=== PATIENT | female | born 1960 | race Caucasian/White ===

== ENCOUNTER 2023-08-14 16:46 | Inpatient (IN) | payer SELFPAY ==
[2023-08-14] VITALS (28 sets, daily range): BP systolic 139–216; BP diastolic 51–94; PULSE 78–94; RESP 15–28; TEMP 36.6; O2SAT 92–98; BMI 34.3; BMI 37.4
[2023-08-14 17:06] LABS: Glucose Point of Care 230 mg/dL (70-110)
--- NOTE | 2023-08-14 17:09 | ECG_ITS ---
[facility] Test Date: 2023-08-14 Pat Name: Chas Jennings Department: Room: Gender: Female Advertising Sales Consultant: : 1960 Requested By: Tyson Muñoz Order Number: [id number] Gely MD: Sterling Centeno M.D. Measurements Intervals [place] Rate: 71 P: 52 DC: 184 QRS: 60 QRSD: 104 T: 55 QT: 407 QTc: 444 Interpretive Statements SINUS RHYTHM POSSIBLE ANTERIOR MYOCARDIAL INFARCTION , OF INDETERMINATE AGE [30 ms Q WAVE IN V3/V4, OR R < 0.2 mV IN V4] No previous ECG available for comparison Electronically Signed On 08-14-2023 17:37:49 CDT by Sterling Centeno M.D. [email or web address] Technologiesrussell medical centerHydrostorpromedica flower hospital.[employer]/store/NU/[id number] f
--- NOTE | 2023-08-14 17:16 | CTR_ITS ---
PROCEDURE INFORMATION: Exam: CT Head Without Contrast Exam date and time: 08/14/2023 5:25 PM Age: 63 years old Clinical indication: Stroke-like symptoms; Speech disturbance; Additional info: Symptoms of acute stroke started yesterday TECHNIQUE: Imaging protocol: Computed tomography of the head without contrast. Radiation optimization: All CT scans at this facility use at least one of these dose optimization techniques: automated exposure control; mA and/or kV adjustment per patient size (includes targeted exams where dose is matched to clinical indication); or iterative reconstruction. Other technique: STROKE PROTOCOL was implemented. COMPARISON: No relevant prior studies available. RADIATION DOSE METRICS: Total DLP (mGy-cm): 1041.3 FINDINGS: Brain: There is mild white matter lucency most consistent with chronic microvascular disease. There is an old left basal ganglia lacunar infarct. There is an old left occipital cortical infarct. No acute infarct is identified. There is no hemorrhage or extra-axial collection. No mass. Cerebral ventricles: No ventriculomegaly. Paranasal sinuses: Visualized sinuses are unremarkable. No fluid levels. Mastoid air cells: Visualized mastoid air cells are well aerated. Bones: Unremarkable. No acute fracture. Soft tissues: Unremarkable. CT/CT head thrombolytic 30630 IMPRESSION: 1. 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 2. No acute intracranial lesion or injury ASSESSMENT: ASPECTS ([place] Stroke Program Early CT Score) is 10.
--- NOTE | 2023-08-14 17:16 | ED_ITS ---
Documented by User: Tyson Red DO 08/14/23 18:08 HPI - Headache 2 General: Chief Complaint: Headache Stated Complaint: slurred speech Time Seen by Provider: 08/14/23 17:15 Source: patient Mode of arrival: ambulatory History of Present Illness: 63-year-old female presents emergency ro om complaining of frontal headache and elevated blood pressure. She has had confusion and difficulty with speech slurring of speech difficult word finding for the last 2 days she gets emotional even with simple history questioning he has difficult time completing send which is. She notices some right-sided visual defects. All of this began about 2 days ago. She is not currently on any medications her blood pressure is markedly elevated. She denies chest pain or shortness of breath. No history of previous stroke no history of coronary artery disease. MD elicited complaint: headache Onset (ago): day(s) (2) Onset description: gradually Location: frontal Severity: severe Quality & Timing: throbbing Exacerbating factors: none Relieving factors: nothing Associated symptoms: Reports confusion and photophobia; Deny chest pain, cough, diaphoresis, eye pain, eye redness, fever(s), lightheadedness, loss of vision, malaise, nausea, neck stiffness, numbness, paresthesias, pre-syncope, rash, seizures, short of breath, sound sensitivity, syncope, vomiting or weakness Review of Systems 2 Const: Denies: fever(s), chills, malaise or diaphoresis Card: Denies: chest pain, lightheadedness, syncope or pre-syncope Resp: Denies: dyspnea GI: Denies: abdominal pain, nausea or vomiting : Denies: dysuria, urinary frequency or urinary urgency Musc: Denies: neck pain or back pain Skin/Breast: Denies: rash Neuro: Reports: confusion Physical Exam 2 Const: COMMON NORMALS: no acute distress GENERAL APPEARANCE: cooperative and comfortable ORIENTATION/CONSCIOUSNESS: Yes awake, Yes oriented to person, Yes oriented to place and Yes oriented to time HENMT: COMMON NORMALS: normocephalic, atraumatic and hearing grossly normal bilaterally HEAD & SCALP: normocephalic and atraumatic Eye: DIRECT OPHTHALMOSCOPY: Yes photophobia Resp: COMMON NORMALS: normal respiratory effort, No retractions, No use of accessory muscles and clear to auscultation bilaterally AUSCULTATION: clear to auscultation bilaterally Cardio: COMMON NORMALS: regular rate, regular rhythm and No murmurs present (Cardio) RATE: regular rate RHYTHM: regular rhythm GI: COMMON NORMALS: Soft to palpation and No hepatosplenomegaly present A USCULTATION: Yes normoactive bowel sounds PALPATION: Yes Soft to palpation, No Tenderness to palpation present (GI), No Guarding due to palpation present (GI) and Yes No hepatosplenomegaly present Extremity: COMMON NORMALS: normal to inspection, capillary refill normal, no clubbing, cyanosis or edema, no calf tenderness and no pedal edema Neuro: SENSORIUM/ORIENTATION: Yes oriented to person, Yes oriented to place and Yes oriented to time Skin: COMMON NORMALS: no rashes or lesions noted GENERAL SKIN EXAM: no rashes or lesions noted Course 2 Vital Signs: Vital signs: Vital Signs Temperature 97.8 F 08/14/23 16:55 Pulse Rate 86 08/14/23 20:30 Respiratory Rate 18 08/14/23 20:22 Blood Pressure 173/71 08/14/23 20:30 Pulse Oximetry 94 08/14/23 20:30 Oxygen Delivery Me thod Room Air 08/14/23 20:30 MDM - Headache Medical Decision Making Care signed out to Dr. Bansal at change of shift. See final notes for diagnosis and disposition. Lab Data 08/14/23 17:46 08/14/23 17:[address] 08/14/23 17:16 IMPRESSION: 1. 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 2. No acute intracranial lesion or injury ASSESSMENT: ASPECTS ([place] Stroke Program Early CT Score) is 10. Laboratory Results WBC 7.97 10^3/uL (3.29-11.43) 08/14/23 17:46 RBC 4.63 10^6/uL (3.85-5.65) 08/14/23 17:46 Hgb 14.70 g/dL (11.27-16.99) 08/14/23 17:46 Hct 44.3 % (36-47) 08/14/23 17:46 MCV 95.7 fl (85-98) 08/14/23 17:46 MCH 31.7 pg (27-33) 08/14/23 17:46 MCHC 33.2 g/dL (30-55) 08/14/23 17:46 RDW 11.9 % (12.1-15.1) L 08/14/23 17:46 Plt Count 235 10^3/cmm (157-399) 08/14/23 17:46 MPV 10.5 fL (7.4-10.4) H 08/14/23 17:46 Neut % (Auto) 74.0 % 08/14/23 17:46 Lymph % (Auto) 19.3 % 08/14/23 17:46 Yates % (Auto) 5.0 % 08/14/23 17:46 Eos % (Auto) 0.9 % 08/14/23 17:46 Baso % (Auto) 0.4 % 08/14/23 17:46 Neut # (Auto) 5.90 10^3/uL (1.8-7.7) 08/14/23 17:46 Lymph # (Auto) 1.5 10^3/uL (0.8-4.8) 08/14/23 17:46 Yates # (Auto) 0.4 10^3/uL (0.2-0.9) 08/14/23 17:46 Eos # (Auto) 0.1 10^3/uL (0.0-0.8) 08/14/23 17:46 Baso # (Auto) 0.0 10^3/uL (0.0-0.1) 08/14/23 17:46 Nucleated RBC % (auto) 0 % 08/14/23 17:46 Nucleated RBCs # 0.0 /100WBC 08/14/23 17:46 PT 13.10 SECONDS (12.1-14.9) 08/14/23 17:46 INR 0.96 (0.8-1.2) 08/14/23 17:46 APTT 26.7 SECONDS (23.9-36.7) 08/14/23 17:46 Sodium 138 mmol/L (136-145) 08/14/23 17:46 Potassium 3.8 mmol/L (3.5-5.1) 08/14/23 17:46 Chloride 100 mmol/L (98-107) 08/14/23 17:46 Carbon Dioxide 25 mmol/L (22-29) 08/14/23 17:46 Anion Gap 16.8 (5-19) 08/14/23 17:46 BUN 11 mg/dL (8-23) 08/14/23 17:46 Creatinine 0.6 mg/dL (0.5-0.9) 08/14/23 17:46 GFR Calculation 100.6 mL/min (90-130) 08/14/23 17:46 Glucose 239 mg/dL (65-115) H 08/14/23 17:46 POC Glucose 230 mg/dL (70-110) H 08/14/23 17:03 Calculated Osmolality 293 mOsm/kg (285-295) 08/14/23 17:46 Calcium 9.0 mg/dL (8.5-10.5) 08/14/23 17:46 Total Bilirubin 0.7 mg/dL (0.15-1.2) 08/14/23 17:46 AST 25 U/L (0-32) 08/14/23 17:46 ALT 35 U/L (0-33) H 08/14/23 17:46 Alkaline Phosphatase 77 U/L (35-105) 08/14/23 17:46 Troponin T Baseline 10 ng/L (0-10) 08/14/23 17:46 Troponin T 120 Minute 10.50 ng/L (0-10) H 08/14/23 20:00 Delta Troponin T 0.50 ABS# (0-10) 08/14/23 20:00 Total Protein 7.9 g/dL (6.6-8.7) 08/14/23 17:46 Albumin 4.4 g/dL (3.5-5.2) 08/14/23 17:46 Globulin 3.5 g/dL (1.3-4.6) 08/14/23 17:46 All radiology interpretation(s) finalized by discharge Discharge Plan Discharge Patient Disposition: Admitted As Inpatient Admit Provider: Latrell Lomeli Clinical Impression: Hypertensive urgency Condition: Stable Coding Level of Care Code ED Consulting Sales Executive for Anjelica Toro NIH stroke score NIHSS Level Of Consciousness - 1a: 0 Level Of Consciousness Questions - 1b: Both Correct Level Of Consciousness Commands - 1c: Both Correct Best Gaze - 2: Normal Visual Nuñez - 3: No Visual Loss Facial Palsy - 4: Normal Motor Arm Right - 5: No Drift Motor Arm Left - 5: No Drift Motor Leg Right - 6: No Drift Motor Leg Left - 6: No Drift Limb Ataxia - 7: Absent Sensory - 8: Normal Best Language - 9: No Aphasia Dysarthia - 10: Normal Extinction And Inattention - 11: 0 Score Total Score: 0 Documented by User: Alberto Bansal, DO 08/14/23 21:06 HPI - Headache 2 General: Chief Complaint: Headache Stated Complaint: slurred speech Time Seen by Provider: 08/14/23 17:15 Course 2 Vital Signs: Vital signs: Vital Signs Temperature 97.8 F 08/14/23 16:55 Pulse Rate 86 08/14/23 20:30 Respiratory Rate 18 08/14/23 20:22 Blood Pressure 173/71 08/14/23 20:30 Pulse Oximetry 94 08/14/23 20:30 Oxygen Delivery Me thod Room Air 08/14/23 20:30 MDM - Headache Medical Decision Making Care signed out to Dr. Bansal at change of shift. See final notes for diagnosis and disposition. 63-year-old patient with significant hypertension. She was seen earlier and checked out to me at shift change. She continues to be hypertensive despite multiple IV doses of labetalol, hydralazine, and oral amlodipine. Symptoms are atypical. There is likely some degree of encephalopathy, whether ischemic or hypertensive in nature. CBC is normal. Blood sugar is mildly elevated, she does not have a history of diabetes. CT shows no acute change, but does show old lacunar infarct and an old occipital cortical infarct. She is still complaining of headache. She is placed on nicardipine drip with improvement in the blood pressure to some degree down to the 170s. Of course, we are concerned about dropping blood pressure too quickly and the setting of potential ischemia, but also the potential for hypertensive encephalopathy is real and present. Would favor 1 60-1 80 systolic range for pressures at this point. She will have to go to the ICU. Spoke with hospitalist. He agrees. Further imaging may be necessary. Lab Data 08/14/23 17:46 08/14/23 17:[address] 08/14/23 17:16 IMPRESSION: 1. 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 2. No acute intracranial lesion or injury ASSESSMENT: ASPECTS ([place] Stroke Program Early CT Score) is 10. Laboratory Results WBC 7.97 10^3/uL (3.29-11.43) 08/14/23 17:46 RBC 4.63 10^6/uL (3.85-5.65) 08/14/23 17:46 Hgb 14.70 g/dL (11.27-16.99) 08/14/23 17:46 Hct 44.3 % (36-47) 08/14/23 17:46 MCV 95.7 fl (85-98) 08/14/23 17:46 MCH 31.7 pg (27-33) 08/14/23 17:46 MCHC 33.2 g/dL (30-55) 08/14/23 17:46 RDW 11.9 % (12.1-15.1) L 08/14/23 17:46 Plt Count 235 10^3/cmm (157-399) 08/14/23 17:46 MPV 10.5 fL (7.4-10.4) H 08/14/23 17:46 Neut % (Auto) 74.0 % 08/14/23 17:46 Lymph % (Auto) 19.3 % 08/14/23 17:46 Yates % (Auto) 5.0 % 08/14/23 17:46 Eos % (Auto) 0.9 % 08/14/23 17:46 Baso % (Auto) 0.4 % 08/14/23 17:46 Neut # (Auto) 5.90 10^3/uL (1.8-7.7) 08/14/23 17:46 Lymph # (Auto) 1.5 10^3/uL (0.8-4.8) 08/14/23 17:46 Yates # (Auto) 0.4 10^3/uL (0.2-0.9) 08/14/23 17:46 Eos # (Auto) 0.1 10^3/uL (0.0-0.8) 08/14/23 17:46 Baso # (Auto) 0.0 10^3/uL (0.0-0.1) 08/14/23 17:46 Nucleated RBC % (auto) 0 % 08/14/23 17:46 Nucleated RBCs # 0.0 /100WBC 08/14/23 17:46 PT 13.10 SECONDS (12.1-14.9) 08/14/23 17:46 INR 0.96 (0.8-1.2) 08/14/23 17:46 APTT 26.7 SECONDS (23.9-36.7) 08/14/23 17:46 Sodium 138 mmol/L (136-145) 08/14/23 17:46 Potassium 3.8 mmol/L (3.5-5.1) 08/14/23 17:46 Chloride 100 mmol/L (98-107) 08/14/23 17:46 Carbon Dioxide 25 mmol/L (22-29) 08/14/23 17:46 Anion Gap 16.8 (5-19) 08/14/23 17:46 BUN 11 mg/dL (8-23) 08/14/23 17:46 Creatinine 0.6 mg/dL (0.5-0.9) 08/14/23 17:46 GFR Calculation 100.6 mL/min (90-130) 08/14/23 17:46 Glucose 239 mg/dL (65-115) H 08/14/23 17:46 POC Glucose 230 mg/dL (70-110) H 08/14/23 17:03 Calculated Osmolality 293 mOsm/kg (285-295) 08/14/23 17:46 Calcium 9.0 mg/dL (8.5-10.5) 08/14/23 17:46 Total Bilirubin 0.7 mg/dL (0.15-1.2) 08/14/23 17:46 AST 25 U/L (0-32) 08/14/23 17:46 ALT 35 U/L (0-33) H 08/14/23 17:46 Alkaline Phosphatase 77 U/L (35-105) 08/14/23 17:46 Troponin T Baseline 10 ng/L (0-10) 08/14/23 17:46 Troponin T 120 Minute 10.50 ng/L (0-10) H 08/14/23 20:00 Delta Troponin T 0.50 ABS# (0-10) 08/14/23 20:00 Total Protein 7.9 g/dL (6.6-8.7) 08/14/23 17:46 Albumin 4.4 g/dL (3.5-5.2) 08/14/23 17:46 Globulin 3.5 g/dL (1.3-4.6) 08/14/23 17:46 Critical Care Time 2 Critical Care Time: Critical Care Time: Yes Total Critical Care Time: 35 Attestation: This case had a high probability of a clinically significant, sudden, or life threatening deterioration of this patient's condition which required my full and direct attention, intervention and personal management. Time is independent of procedures performed Discharge Plan Discharge Patient Disposition: Admitted As Inpatient Admit Provider: Latrell Lomeli Clinical Impression: Hypertensive urgency Condition: Stable Coding Level of Care Code ED Consulting Sales Executive for Anejlica Toro NIH stroke score Score Total Score: 0
[2023-08-14 17:52] LABS: Basophils % 0.4 %; Eosinophils # 0.1 10^3/uL (0.0-0.8); Eosinophils % 0.9 %; Hematocrit 44.3 % (36-47); Lymphocytes # 1.5 10^3/uL (0.8-4.8); Lymphocytes % 19.3 %; Mean Corpuscular HGB Conc 33.2 g/dL (30-55); Mean Corpuscular Hemoglobin 31.7 pg (27-33); Mean Corpuscular Volume 95.7 fl (85-98); Mean Platelet Volume 10.5 fL (7.4-10.4); Monocytes # 0.4 10^3/uL (0.2-0.9); Nucleated Red Blood Cells % 0 %; Platelet Count 235 10^3/cmm (157-399); Red Blood Count 4.63 10^6/uL (3.85-5.65); Red Cell Distribution Width 11.9 % (12.1-15.1); White Blood Count 7.97 10^3/uL (3.29-11.43)
[2023-08-14 18:04] LABS: INR 0.96 (0.8-1.2)
[2023-08-14 18:05] LABS: Partial Thromboplastin Time 26.7 SECONDS (23.9-36.7)
[2023-08-14] MEDS: amlodipine 5 mg Tablet PO (18:06)
[2023-08-14] MEDS: hyDRALAzine 20 mg/mL INJ 1 mL 10 MG IVP (18:07)
--- NOTE | 2023-08-14 18:07 | ECG_ITS ---
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 Measurements Intervals [place] Rate: 79 P: 50 OR: 195 QRS: 61 QRSD: 91 T: 47 QT: 398 QTc: 457 Interpretive Statements SINUS RHYTHM POSSIBLE ANTERIOR MYOCARDIAL INFARCTION , PROBABLY OLD [30 ms Q WAVE IN V3/V4, OR R < 0.2 mV IN V4] Compared to ECG 08/14/2023 17:09:31 No significant changes Electronically Signed On 08-15-2023 14:29:45 CDT by Sterling Centeno M.D. [email or web address].Sajanclaiborne county medical centerBharat Matrimonyhighland district hospital..[employer]/store/OM/[id number]
[2023-08-14 18:08] LABS: Alanine Aminotransferase 35 U/L (0-33); Albumin Level 4.4 g/dL (3.5-5.2); Alkaline Phosphatase 77 U/L (35-105); Anion Gap 16.8 (5-19); Aspartate Amino Transferase 25 U/L (0-32); Blood Urea Nitrogen 11 mg/dL (8-23); Carbon Dioxide 25 mmol/L (22-29); Chloride 100 mmol/L (98-107); Creatinine Clr Calc Pharmacy 103.3409; Globulin 3.5 g/dL (1.3-4.6); Glomerular Filtration Rate 100.6 mL/min (90-130); Glucose 239 mg/dL (65-115); Osmolality Calculated 293 mOsm/kg (285-295); Potassium 3.8 mmol/L (3.5-5.1); Sodium 138 mmol/L (136-145); Total Bilirubin 0.7 mg/dL (0.15-1.2); Total Protein 7.9 g/dL (6.6-8.7)
[2023-08-14] MEDS: labetalol 5 mg/mL SDV 20mL 10 MG IVP ×2 (18:08→19:00)
[2023-08-14 18:25] LABS: Troponin(5th) Baseline 10 ng/L (0-10)
--- NOTE | 2023-08-14 20:07 | ECG_ITS ---
[facility] Test Date: 2023-08-14 Pat Name: Chas Jennings Department: Room: [facility] Gender: Female Precision Grinder: : 1960 Requested By: Tyson Muñoz Order Number: [id number] Gely MD: Sterling Centeno M.D. Measurements Intervals [place] Rate: 87 P: 33 MD: 184 QRS: 38 QRSD: 101 T: 30 QT: 385 QTc: 465 Interpretive Statements SINUS RHYTHM POSSIBLE ANTERIOR MYOCARDIAL INFARCTION , PROBABLY OLD [30 ms Q WAVE IN V3/V4, OR R < 0.2 mV IN V4] Compared to ECG 08/14/2023 20:02:07 No significant changes Electronically Signed On 08-15-2023 14:33:30 CDT by Sterling Centeno M.D. [email or web address] and love and youeast mississippi state hospitalKaonetics Technologiesaultman orrville hospital.[employer]/store/OM/[id number]
[2023-08-14] MEDS: nicardipine 20 MG/200 ML PREMIX 50 MG IV (20:23)
--- NOTE | 2023-08-14 22:18 | P.HP_ITS ---
Providers/Chief Complaint 2 Admitting Physician: Latrell Lomeli Chief Complaint: slurred speech History of Present Illness Chas Jennings is a 63 year old female came into ER for evaluation after not feeling well for several days, has had a headache for about 3 days, and then over the last 2 days has had word finding difficulty, mildly slurred speech, in ER she is found quite hypertensive, 216/94, states that her blood pressure has been high for a long time . She is not aware of other medical history, currently taking medications, other than multivitamin. Does not have a primary care provider. CT of the head performed in ER, with finding of old left basal ganglia lacunar infarct, old left occipital cortical infarct, no acute intracranial lesion or injury. Without hypoglycemia but with hyperglycemia, denies known history of diabetes, glucose 239. So far has received labetalol, hydralazine, moderate pain, lisinopril, started on nicardipine drip, blood pressure improved to 173/71, with improvement in blood pressure headache so far resolved. Review of Systems 2 Const: Denies: fever(s), chills, body aches or malaise ENMT: Denies: throat pain Card: Denies: chest pain, edema, pre-syncope or dyspnea on exertion Resp: Denies: dyspnea, productive cough, change in phlegm color or hemoptysis GI: Denies: abdominal pain, nausea, vomiting, diarrhea, constipation, hematochezia or melena : Denies: flank pain, urinary frequency or hematuria Musc: Denies: back pain, joint swelling or joint redness Skin/Breast: Denies: rash or new lesions Neuro: Denies: headache(s) Medications/Allergies Allergies Allergy/AdvReac Type Severity Reaction Status Date / Time No Known Allergies Allergy Verified 08/14/23 17:01 PFSH Acute 2 PFSH: Medical History (Updated 08/14/23 @ 22:24 by Latrell Lomeli MD) Does not have primary care provider HTN (hypertension) Social History (Updated 08/14/23 @ 22:26 by Latrell Lomeli MD) Smoking and tobacco/nicotine status: never used tobacco/nicotine Alcohol intake: never Substance/Drug Use: never Lives independently: Yes Household members: spouse Marital status: Vitals/I&O/Wt Last Vital Signs Temp 97.8 F 08/14/23 16:55 Pulse 89 08/14/23 22:00 Resp 18 08/14/23 20:22 BP 201/94 08/14/23 21:00 Pulse Ox 93 08/14/23 21:00 O2 Del Method Room Air 08/14/23 21:00 Weight last 48 hrs Weight 99 kg Weight 90.718 kg Physical Exam 2 Narrative: Accompanied by her . Const: COMMON NORMALS: patient oriented x3 and alert GENERAL APPEARANCE: c ooperative ORIENTATION/CONSCIOUSNESS: Yes awake HENMT: COMMON NORMALS: oropharynx normal Neck/C-Spine: COMMON NORMALS: no JVD Resp: COMMON NORMALS: normal respiratory effort and clear to auscultation bilaterally AUSCULTATION: clear to auscultation bilaterally Cardio: COMMON NORMALS: no JVD, regular rhythm, S1 normal heart sound present, S2 normal heart sound present and No murmurs present (Cardio) RHYTHM: regular rhythm HEART SOUNDS: S1 normal heart sound present and S2 normal heart sound present GI: COMMON NORMALS: Normal to inspection, nondistended, normoactive bowel sounds present, Soft to palpation and non-tender PALPATION: Yes Soft to palpation Extremity: COMMON NORMALS: no joint enlargement and no pedal edema Neuro: COMMON NORMALS: patient oriented x3 and moves all extremities S ENSORIUM/ORIENTATION: Yes alert Skin: COMMON NORMALS: no rashes or lesions noted GENERAL SKIN EXAM: no rashes or lesions noted Data 08/14/23 17:46 08/14/23 17:46 A&P Assessment and plan (1) Hypertensive urgency: Received multiple antihypertensives, started on nicardipine drip due to resistant hypertension, hypertensive urgency. So far with improvement in blood pressure headache has resolved. Discussed vital CBC, INR, blood glucose, CMP, troponin, EKG on my interpretation without atrial fibrillation, without acute NM, no Q waves in V3, V4, isolated Q wave in III, pending official read. Reviewed head CT, ER note, discussed with ER provider, discussed with patient and her . As per prior discussion with ER physician, we can revisited difficulty with pinpointing the exact etiology of her symptoms, certainly symptomatic patient presents with hypertensive urgency with very elevated blood pressure, headache, focal neurologic deficits, however, with longstanding hypertension, also noted prior lacunar infarcts on CT of the head, and with symptom change and over the last 2 days there is possibility of recurrence of additional CVA 2 days ago and/or possibly not excluded of some ongoing small areas of ischemia not seen on CT. We discussed consideration of further steps with options of continued treatment of hypertension with hypertensive urgency, possible PRES hypertension, however, doing so cautiously, for now targeting blood pressure 170-180 systolic, in case of additional small area of ischemia, and continuing with stroke workup and secondary stroke prophylaxis as she is outside window for acute intervention. Discussed admission to intensive care unit, closer blood pressure monitoring, continuing Cardene drip. Discussed to let us know in case of any changes in her symptoms. Monitor for risk of bradycardia with labetalol, monitor for risk of overly rapid blood pressure decreased with nicardipine drip. Discussed with both him also the importance of continued follow-up of her blood pressures, optimization of control, target 120/80 long-term blood pressure with frequent monitoring at home and establishing care with a primary care provider to continue to optimize blood pressure control and cardiovascular risk factors due to risk of recurrent stroke and other complications. (2) CVA (cerebral vascular accident): Noted old lacunar strokes on CT of the head including chronic microvascular disease with old left basal ganglia lacunar infarct and old left occipital cortical infarct. Discussed with patient and her . As per discussion with ER physician with possible recent CVA over the last 2 days, she is outside the window for acute intervention, however, also with hypertensive urgency as above. Discussed with patient and her secondary prophylaxis of CVA and risk of recurrence, starting aspirin, statin, additionally noted hyperglycemia, discussed checking A1c, importance of long-term blood pressure management, cardiovascular risk factor optimization and establishing and follow-up with a primary care provider to help reduce chance of further complications. Discussed with her additional assessment with MRI which he understands not available tonight, however, will request for tomorrow morning. Discussed additional workup, will obtain echocardiogram bubble study, carotid duplex, monitor on telemetry for A-fib, lipid profile, A1c, assessment by ST, OT, PT, registered dietitian, case management consultation. Discussed importance of follow-up with neurology in office. Discussed with both him also the importance of continued follow-up of her blood pressures, optimization of control, target 120/80 long-term blood pressure with frequent monitoring at home and establishing care with a primary care provider to continue to optimize blood pressure control and cardiovascular risk factors due to risk of recurrent stroke and other complications. (3) Hyperglycemia: Denies history of diabetes. Check A1c, possible undiagnosed diabetes. Consistent carb diet. (4) Does not have primary care provider: Discussed importance of establishing with a primary care provider for follow-up of multiple suspected conditions as above to help optimize conditions, help reduce chance of recurrence of complications including recurrent stroke, other cardiovascular and other complications and comorbidities. Case management consultation. Attestations 2 Medical Necessity Statement*: Admission of over 2 midnights anticipated for assessment management of hypertensive urgency, prior CVA, possibly additional CVA in last 2 days, uncontrolled hypertension, in a lady without a medical provider. Diagnoses Hypertensive urgency I16.0 CVA (cerebral vascular accident) I63.9 Hyperglycemia R73.9 Does not have primary care provider Z75.8
[2023-08-14 22:42] LABS: Add Urine Microscopic? YES; Bacteria Urine TRACE /hpf; Bilirubin Urine Neg (Negative); Blood Urine Neg (Negative); Glucose Urine UA 4+ (Normal); Ketones Urine 2+ (Negative); Leukocyte Esterase Urine Negative (Negative); Nitrate Urine Negative (Negative); Protein Urine Neg (Negative); RBC Urine 0-4 /hpf (0-2); Urine Appearance Cloudy (CLEAR); Urine Color Yellow (Yellow); Urobilinogen Urine Neg (Negative); WBC Urine 0-4 /hpf (0-5); pH Urine 7 (5-7)
[2023-08-14 22:43] LABS: Amphetamines Screen Urine Negative (Negative); Barbiturates Screen Urine Negative (Negative); Benzodiazepines Screen Urine Negative (Negative); Cocaine Screen Urine Negative (Negative); Opiate Screen Urine Negative (Negative); PCP Screen Urine Negative (Negative); THC Screen Urine Negative (Negative)
[2023-08-14] MEDS: aspirin 81 mg EC Tablet 162 MG PO (22:55)
[2023-08-14] MEDS: atorvastatin 40 mg Tablet PO (22:56)
--- NOTE | 2023-08-14 23:27 | PC.NURSE ---
Admitted 63 year old female to ICU 4 accompanied by her . Able to stand with SBAx1 and transferred to ICU bed from JEWEL ochoa. Discussed visitation hours with , also that physician told him he could stay tonight, but likely would be asked to abide by visitation hours tomorrow if she remained in ICU. Patient stated I'm not staying here, I'm going home tomorrow so that won't be an issue and stated he would not leave tomorrow if asked once visiting hours were over, and nobody could make him . Both agreeable to staying tonight and this nurse provided with blankets and pillows to sleep in recliner. Within the hour stated he could not get comfortable and he was going home. Since admission discussed medications with patient, states she only takes a multivitamin. Attempted to give ordered lovenox, patient refused even after discussing risks of clotting during hospital stays due to immobility, etc., then later refused SCD's as well. Blood pressures have remained variable, has been cooperative with plan of care with the exeption of VTE prevention measures.
[2023-08-15] VITALS (136 sets, daily range): BP systolic 145–193; BP diastolic 51–113; PULSE 65–91; RESP 12–24; TEMP 36.6–36.9; O2SAT 83–99
[2023-08-15] MEDS: nicardipine 20 MG/200 ML PREMIX 50 MG IV (00:01)
--- NOTE | 2023-08-15 00:24 | PC.NURSE ---
Contacted Dr. Lomeli, made aware of patient refusing Lovenox and SCD's. Provided home med list as well. Lab then exited room and stated that patient was refusing her 6 hour troponin. Entered patient room and explained that we needed this lab as there was a small elevation in her last one and could indicate a AL. Patient was adamant she did not have a heart attack and this nurse explained that she may not have had symptoms, but that was how we checked to be sure. Patient continued to refuse, and Dr. Lomeli made aware, no new orders.
[2023-08-15 04:59] LABS: Basophils # 0.1 10^3/uL (0.0-0.1); Basophils % 0.6 %; Eosinophils # 0.1 10^3/uL (0.0-0.8); Eosinophils % 1.6 %; Hematocrit 41.3 % (36-47); Lymphocytes # 2.1 10^3/uL (0.8-4.8); Mean Corpuscular HGB Conc 32.9 g/dL (30-55); Mean Corpuscular Hemoglobin 31.8 pg (27-33); Mean Corpuscular Volume 96.5 fl (85-98); Mean Platelet Volume 11.2 fL (7.4-10.4); Monocytes # 0.6 10^3/uL (0.2-0.9); Monocytes % 7.1 %; Neutrophils # 5.44 10^3/uL (1.8-7.7); Neutrophils % 65.3 %; Nucleated Red Blood Cells % 0 %; Platelet Count 222 10^3/cmm (157-399); Red Blood Count 4.28 10^6/uL (3.85-5.65); Red Cell Distribution Width 12.2 % (12.1-15.1); White Blood Count 8.32 10^3/uL (3.29-11.43)
[2023-08-15 05:10] LABS: Estmated Average Glucose 240
[2023-08-15 05:13] LABS: Troponin 5 6HR 12.82 ng/L (0-10)
[2023-08-15 05:16] LABS: Alanine Aminotransferase 30 U/L (0-33); Albumin Level 4.3 g/dL (3.5-5.2); Alkaline Phosphatase 73 U/L (35-105); Anion Gap 16.8 (5-19); Aspartate Amino Transferase 21 U/L (0-32); Blood Urea Nitrogen 10 mg/dL (8-23); Calcium 8.7 mg/dL (8.5-10.5); Carbon Dioxide 24 mmol/L (22-29); Chloride 101 mmol/L (98-107); Creatinine Clr Calc Pharmacy 129.9537; Globulin 2.7 g/dL (1.3-4.6); Glomerular Filtration Rate 124.2 mL/min (90-130); Glucose 238 mg/dL (65-115); Osmolality Calculated 293 mOsm/kg (285-295); Potassium 3.8 mmol/L (3.5-5.1); Sodium 138 mmol/L (136-145); Total Bilirubin 0.9 mg/dL (0.15-1.2); Troponin 5 6HR Delta 2.82 ng/L (0-12)
[2023-08-15 05:18] LABS: Chol HDL Ratio 5.98 mg/dL (0.0-4.40); Cholesterol 245 mg/dL (0-200); HDL Cholesterol 41 mg/dL (60-100); LDL Cholesterol Calculated 161 mg/dL (50-129); LDL HDL Ratio 3.93 RATIO (0.00-3.22); Triglycerides 214 mg/dL (0-150)
--- NOTE | 2023-08-15 06:00 | USCV_ITS ---
Chas Jennings Age: 63 Gender: F : 1960 Exam Date: 08/15/2023 08:02 Ordering Phys: Latrell Lomeli MD Technologist: GILLES [place] [facility] [place]: CVA Risk Factors: Previous Vascular Surgery: Right Brachial BP: / Left Brachial BP: / Right Left Velocity (cm/s) Spectral Plaque Velocity (cm/s) Spectral Plaque Syst/Diast Broadening Syst/Diast Broadening 53.10/ 9.00 Prox CCA 80.00 / 13.30 63.50/ 12.90 Mid CCA 67.50 / 11.20 81.70/ 12.90 Distal CCA 72.00 / 10.30 63.60/ 12.10 Prox ICA 83.70 / 20.70 59.20/ 15.80 Mid ICA 82.60 / 18.80 87.00/ 20.60 Distal ICA 77.40 / 19.70 136.00 ECA 141.70 1.10 ICA/CCA 1.20 Antegrade Vertebral Antegrade 39.80/ 9.60 cm/s 53.10/ 12.40 cm/s Tri Subclavian Tri 155.1 150.0 0 0 FINDINGS Comparison: none available. No significant elevation of systolic or diastolic velocities. Waveforms are normal. Mild diffuse carotid atherosclerosis. Antegrade vertebral arteries. CONCLUSIONS Bilateral ICA stenosis less than 50%. Mild carotid atherosclerosis. Dr. Kaylan La DO (Electronically Signed) Final Date: 15 August 2023 12:12 S
[2023-08-15] MEDS: gadobenate dimeglumine 20 mL vial IV (08:24)
[2023-08-15] MEDS: aspirin 81 mg EC Tablet 162 MG PO (09:27)
--- NOTE | 2023-08-15 11:12 | PC.OT ---
OT EVALUATION ORDERS RECEIVED. PER ; PATIENT IS D/C AMA NO THERAPY AT [facility] AT THIS TIME.
[2023-08-15] MEDS: lisinopril 20 mg Tablet PO (11:23)
[2023-08-15] MEDS: metformin 500 mg Tablet PO (11:23)
[2023-08-15] MEDS: atorvastatin 40 mg Tablet PO (11:23)
[2023-08-15] MEDS: amlodipine 10 mg Tablet PO (11:23)
--- NOTE | 2023-08-15 11:33 | P.DS_ITS ---
Discharge Providers Date of Admission: 08/14/23 20:59 Date of Discharge: August 15, 2023 Attending Provider at Admission: Latrell Lomeli Attending Provider at Discharge: Cele Chen MD Diagnoses at Discharge Discharge Diagnosis (1) Hypertensive urgency: Status: Acute (2) CVA (cerebral vascular accident): Status: Acute (3) Hyperglycemia: Status: Acute (4) Does not have primary care provider: Status: Acute Reason for Visit Reason for Visit: slurred speech Hospital Course Hospital Course Patient was recommended to stay in the hospital since her blood pressure was quite high. She understood the risks and benefits including and still wanted to get discharged home however at that point I told her she will have to sign out AGAINST MEDICAL ADVICE as it is my medical recommendation that patient stay for further management. Patient signed out AMA. Family member with patient took her home. I did recommend that she follow-up with neurology outpatient. Discharge Data Studies Completed and Pending Completed Studies During Hospitalization Category Date Time Status CT head thrombolytic 40230 Stat Cat Scan 08/14/23 17:16 Completed Pending at discharge Category Date Time Status CV carotid duplex BI* [id number] Routine Ultrasound 08/15/23 06:00 Taken CV. echo wo/w contrast [id number] Routine Ultrasound 08/15/23 22:46 Taken Radiology Impressions Head CT 08/14/23 17:16 IMPRESSION: 1. 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 2. No acute intracranial lesion or injury ASSESSMENT: ASPECTS ([place] Stroke Program Early CT Score) is 10. Laboratory Results WBC 8.32 10^3/uL (3.29-11.43) 08/15/23 04:17 RBC 4.28 10^6/uL (3.85-5.65) 08/15/23 04:17 Hgb 13.60 g/dL (11.27-16.99) 08/15/23 04:17 Hct 41.3 % (36-47) 08/15/23 04:17 MCV 96.5 fl (85-98) 08/15/23 04:17 MCH 31.8 pg (27-33) 08/15/23 04:17 MCHC 32.9 g/dL (30-55) 08/15/23 04:17 RDW 12.2 % (12.1-15.1) 08/15/23 04:17 Plt Count 222 10^3/cmm (157-399) 08/15/23 04:17 MPV 11.2 fL (7.4-10.4) H 08/15/23 04:17 Neut % (Auto) 65.3 % 08/15/23 04:17 Lymph % (Auto) 25.0 % 08/15/23 04:17 [place] % (Auto) 7.1 % 08/15/23 04:17 Eos % (Auto) 1.6 % 08/15/23 04:17 Baso % (Auto) 0.6 % 08/15/23 04:17 Neut # (Auto) 5.44 10^3/uL (1.8-7.7) 08/15/23 04:17 Lymph # (Auto) 2.1 10^3/uL (0.8-4.8) 08/15/23 04:17 [place] # (Auto) 0.6 10^3/uL (0.2-0.9) 08/15/23 04:17 Eos # (Auto) 0.1 10^3/uL (0.0-0.8) 08/15/23 04:17 Baso # (Auto) 0.1 10^3/uL (0.0-0.1) 08/15/23 04:17 Nucleated RBC % (auto) 0 % 08/15/23 04:17 Nucleated RBCs # 0.0 /100WBC 08/15/23 04:17 PT 13.10 SECONDS (12.1-14.9) 08/14/23 17:46 INR 0.96 (0.8-1.2) 08/14/23 17:46 APTT 26.7 SECONDS (23.9-36.7) 08/14/23 17:46 Sodium 138 mmol/L (136-145) 08/15/23 04:17 Potassium 3.8 mmol/L (3.5-5.1) 08/15/23 04:17 Chloride 101 mmol/L (98-107) 08/15/23 04:17 Carbon Dioxide 24 mmol/L (22-29) 08/15/23 04:17 Anion Gap 16.8 (5-19) 08/15/23 04:17 BUN 10 mg/dL (8-23) 08/15/23 04:17 Creatinine 0.5 mg/dL (0.5-0.9) 08/15/23 04:17 GFR Calculation 124.2 mL/min (90-130) 08/15/23 04:17 Glucose 238 mg/dL (65-115) H 08/15/23 04:17 POC Glucose 230 mg/dL (70-110) H 08/14/23 17:03 Estimat Average Glucose 240 08/15/23 04:17 Hemoglobin A1c 10.0 % (4.0-6.0) H 08/15/23 04:17 Calculated Osmolality 293 mOsm/kg (285-295) 08/15/23 04:17 Calcium 8.7 mg/dL (8.5-10.5) 08/15/23 04:17 Total Bilirubin 0.9 mg/dL (0.15-1.2) 08/15/23 04:17 AST 21 U/L (0-32) 08/15/23 04:17 ALT 30 U/L (0-33) 08/15/23 04:17 Alkaline Phosphatase 73 U/L (35-105) 08/15/23 04:17 Troponin T Baseline 10 ng/L (0-10) 08/14/23 17:46 Troponin T 120 Minute 10.50 ng/L (0-10) H 08/14/23 20:00 Delta Troponin T 0.50 ABS# (0-10) 08/14/23 20:00 Troponin T Hi Sens 6Hr 12.82 ng/L (0-10) H 08/15/23 04:17 Troponin T Hi Sens 6Hr Delta 2.82 ng/L (0-12) 08/15/23 04:17 Total Protein 7.0 g/dL (6.6-8.7) 08/15/23 04:17 Albumin 4.3 g/dL (3.5-5.2) 08/15/23 04:17 Globulin 2.7 g/dL (1.3-4.6) 08/15/23 04:17 Triglycerides 214 mg/dL (0-150) H 08/15/23 04:17 Cholesterol 245 mg/dL (0-200) H 08/15/23 04:17 LDL Cholesterol, Calc 161 mg/dL (50-129) H 08/15/23 04:17 HDL Cholesterol 41 mg/dL (60-100) L 08/15/23 04:17 LDL/HDL Ratio 3.93 RATIO (0.00-3.22) H 08/15/23 04:17 Cholesterol/HDL Ratio 5.98 mg/dL (0.0-4.40) H 08/15/23 04:17 Urine Color Yellow (Yellow) 08/14/23 22:20 Urine Appearance Cloudy (CLEAR) A 08/14/23 22:20 Urine pH 7 (5-7) 08/14/23 22:20 Ur Specific [place] 1.010 (1.005-1.030) 08/14/23 22:20 Urine Protein Neg (Negative) 08/14/23 22:20 Urine Glucose (UA) 4+ (Normal) H 08/14/23 22:20 Urine Ketones 2+ (Negative) H 08/14/23 22:20 Urine Blood Neg (Negative) 08/14/23 22:20 Urine Nitrate Negative (Negative) 08/14/23 22:20 Urine Bilirubin Neg (Negative) 08/14/23 22:20 Urine Urobilinogen Neg mg/dL (Negative) 08/14/23 22:20 Ur Leukocyte Esterase Negative (Negative) 08/14/23 22:20 Urine RBC 0-4 /hpf (0-2) H 08/14/23 22:20 Urine WBC 0-4 /hpf (0-5) H 08/14/23 22:20 Ur Squamous Epith Cells 5-10 /hpf (0-5) H 08/14/23 22:20 Amorphous Sediment Not Reportable 08/14/23 22:20 Urine Bacteria Trace /hpf (NONE) 08/14/23 22:20 Urine Opiates Screen Negative ng/mL (Negative) 08/14/23 22:20 Ur Barbiturates Screen Negative ng/mL (Negative) 08/14/23 22:20 Ur Phencyclidine Scrn Negative ng/mL (Negative) 08/14/23 22:20 Ur Amphetamines Screen Negative ng/mL (Negative) 08/14/23 22:20 U Benzodiazepines Scrn Negative ng/mL (Negative) 08/14/23 22:20 Urine Cocaine Screen Negative ng/mL (Negative) 08/14/23 22:20 U Marijuana (THC) Screen Negative ng/mL (Negative) 08/14/23 22:20 Vitals Last Vital Signs Temp 98.2 F 08/15/23 04:00 Pulse 89 08/15/23 08:20 Resp 19 H 08/15/23 08:20 BP 159/76 08/15/23 08:20 Pulse Ox 96 08/15/23 08:20 O2 Del Method Room Air 08/14/23 21:50 Discharge Plan Discharge Patient Disposition: Left Against Medical Advice Condition: Fair Prescriptions: New amlodipine 10 mg Tablet 10 mg PO DAILY Qty: 30 0RF aspirin 81 mg tablet,delayed release (DR/EC) 81 mg PO DAILY Qty: 30 0RF atorvastatin 40 mg Tablet 40 mg PO BEDTIME Qty: 30 0RF metformin 500 mg Tablet 500 mg PO BID Qty: 60 0RF lisinopril 20 mg tablet 20 mg PO DAILY 30 Days Qty: 30 0RF Continued Multivitamin Supplement 1 tab PO DAILY Referrals: Shakeel Nice MD [Physician] - 1-3 days Discharge Diet: Cardiac and Diabetic Patient Instructions: Lisinopril (By mouth), Aspirin (By mouth), Amlodipine (By mouth), Metformin (By mouth), Atorvastatin (By mouth), Heart Healthy Diet (DC) Discharge Attestations Time Spent in Discharge Care*: greater than 30 min Quality Metrics Clinical Quality Measures [ No reported AMI, CVA or VTE this stay] Coding Level of Care Code Acute Code for Chg Fwd Diagnoses Hypertensive urgency I16.0 CVA (cerebral vascular accident) I63.9 Hyperglycemia R73.9 Does not have primary care provider Z75.8
--- NOTE | 2023-08-15 11:34 | PC.NURSE ---
Patient and family persistantly wanting to leave AMA. Physician called. Patient adamant on leaving against medical advice after physician and this nurse explaining risks of leaving even when explained the potential of upon leaving. All monitoring equipment, and IVs removed from patient prior to leaving floor. Patient left unit with .
[2023-08-15] MEDS: perflutren protein-a microsphr 0.22 mg/mL SDV 3 mL IV (14:39)
--- NOTE | 2023-08-15 22:46 | USCV_ITS ---
Dick Chas Age: 63 Gender: F : 1960 Exam Date: 08/15/2023 08:43 Ordering Phys: Latrell Lomeli MD Technologist: GILLES Exam Location: [facility] – [place] Indication: cva BP: 174 / 113 HR: 76 Rhythm: Sinus Technical Quality: Adequate MEASUREMENTS (Male / Female) Normal Values 2D ECHO LV Diastolic Diameter PLAX 3.9 cm 4.2 - 5.9 / 3.9 - 5.3 cm IVS Diastolic Thickness 1.7 cm 0.6 - 1.0 / 0.6 - 0.9 cm IVS Systolic Thickness 1.7 cm LVPW Diastolic Thickness 1.4 cm 0.6 - 1.0 / 0.6 - 0.9 cm LVPW Systolic Thickness 2.2 cm LVOT Diameter 2.0 cm LV Ejection Fraction 2D Teich 68.8 % LV Ejection Fraction MOD 2C 84.3 % LV Ejection Fraction 2C AL 85.0 % LA Diameter 2.9 cm RA Systolic Volume 4C AL 72.2 ml RA Systolic Volume 4C MOD 69.2 ml Aorta at Sinotubular Diameter 2.4 cm M-MODE LA Ao Ratio MM 1.4 AV Cusp Separation MM 1.7 cm DOPPLER AV Peak Velocity 155.0 cm/s LVOT Peak Velocity 116.0 cm/s AV Area Cont Eq vti 2.4 cm squared AV Area Cont Eq pk 2.4 cm squared MV Peak Velocity 113.0 cm/s MV Area PHT 6.0 cm squared Mitral E to A Ratio 1.2 TR Peak Velocity 148.0 cm/s TR Peak Gradient 8.8 mmHg TV Peak E Velocity 89.0 cm/s Right Atrial Pressure 3.0 mmHg Pulmonary Artery Systolic Pressu 11.8 mmHg PV Peak Velocity 114.0 cm/s FINDINGS Left Ventricle Technically limited quality echocardiogram because of poor ultrasonic windows. LV systolic function is normal with EF of 60 to 65%. No regional wall motion abnormalities are seen Right Ventricle Normal in size and fucntion Right Atrium Not well visualized Left Atrium Not well visualized Mitral Valve Grossly normal. Trace mitral regurgitation. Aortic Valve Not well visualized. No significant stenosis or regurgitation Tricuspid Valve Insufficient TR jet to calculate RVSP Pulmonic Valve Not well visualized Pericardium Trace pericardial effusion Aorta Normal in size IVC Not well visualized CONCLUSIONS Technically limited quality echocardiogram because of poor ultrasonic windows. LV systolic function is normal with EF of 60 to 65%. Trace mitral regurgitation. Bubble study was not performed secondary to limited visualization of atria Trace pericardial effusion No comparions studies are available. Salo Pizarro MD (Electronically Signed) Final Date: 15 August 2023 14:40 S
== END 2023-08-15 12:02 | disposition left against medical advice (07) | DRG 304 ==
LOC: ER 20:09 → ICU 21:00
PROVIDERS: Family Medicine; Admitting Provider Internal Medicine; Emergency Provider Emergency Medicine; Visit Provider Internal Medicine
DX: I16.0 Hypertensive urgency (principal); I63.9 Cerebral infarction, unspecified; R73.9 Hyperglycemia, unspecified
CPT/HCPCS: 36415; 36416; 70450; 80053; 80061; 80306; 81001; 82962; 83036; 84484; 85025; 85610; 85730; 93005; 93880; 96365; 96374; 96375; 96376; 99285; A9577; C8929; J0360; J3490; Q9956